=== PATIENT | female | born 1970 | race American Indian/Alaskan Native ===

== ENCOUNTER 2018-10-03 05:19 | Day surgery (SDC) | payer OTHER ==
[2018-10-03] MEDS ORDERED: Midazolam 1 MG/ML 2 ML SDV IV ONE ×3 (05:20→06:32)
[2018-10-03] MEDS ORDERED: fentaNYL 100 MCG/2 ML SDV IV ONE ×3 (05:20→06:30)
[2018-10-03] MEDS ORDERED: Dextrose 5%-0.45% NaCl 1,000 ML IV SCH (06:00)
[2018-10-03] MEDS ORDERED: Sodium Chloride 0.9% 10 ML Syringe FLUSH PRN (06:00)
[2018-10-03] MEDS ORDERED: Midazolam 1 MG/ML 2 ML SDV ONE (06:12)
[2018-10-03] MEDS ORDERED: fentaNYL 100 MCG/2 ML SDV ONE (06:13)
--- NOTE | 2018-10-03 07:26 | OR ---
DATE: 10/03/2018 PROCEDURE: Esophagogastroduodenoscopy, NBI, and multiple pinch biopsies. INSTRUMENT USED: GIF-HQ190 Olympus video panendoscope. PREMEDICATIONS: No oral or topical anesthesia used. Fentanyl 100 mcg intravenous, Versed 2 mg intravenous. Nasal O2 cannula. The procedure was done under pulse oximetry, BP recording, and engine monitor. INDICATION: The patient with multiple abdominal symptoms, unexplained, and not responsive to medical measures, and also has iron-deficiency anemia. Esophagogastroduodenoscopy is performed for detection of any active erosive lesions, malignancy also under consideration, H. pylori status to be determined, endoscopic hemostasis therapy if needed. DESCRIPTION OF PROCEDURE: The scope was passed with ease. Adequate visualization of the esophagus was made from proximal to distal areas. No upper esophageal lesions identified. No distal esophageal stricture. No uphill or downhill esophageal varices. No Kandy-Garcia tear. No evidence of erosive esophagitis by Pershing criteria. No esophageal polyp or tumor mass identified. Z-line was seen at around 40 cm distal to the oral verge, configuration consistent with grade I by ZAP classification. No proximal gastric varices noted. Gastric fundus examination by retroflexion showed no polypoid lesions. No gastric ulcer, malignant mass, or vascular ectasia identified. Scattered gastric antral erosions were noted in the antrum and distal body. NBI views were taken, photographs were taken, multiple pinch biopsies were taken from the largest erosion and sent for histopathology. Multiple pinch biopsies were also taken from the gastric antrum and proximal body and sent for PyloriTek test for H. pylori and histopathology. Duodenal bulb showed no ulcer. Visualized second part of the duodenum was unremarkable. No bleeding was noted from any of the visualized areas at the completion of examination. Photographs were taken of the duodenal bulb, gastric antrum, fundus, and distal esophagus. IMPRESSION: Multiple gastric erosions. The patient tolerated the procedure well. [facility] /[id number]
[2018-10-03 10:28] VITALS: BP 103/64
== END 2018-10-03 08:46 | disposition home or self-care (01) ==
LOC: DL.ENDO 05:19
PROVIDERS: ATTEND Internal Medicine Gastroenterology
DX: K29.50 Unspecified chronic gastritis without bleeding (principal); K25.9 Gastric ulcer, unspecified as acute or chronic, without hemorrhage or perforation; B96.81 Helicobacter pylori [H. pylori] as the cause of diseases classified elsewhere; D50.9 Iron deficiency anemia, unspecified; K21.9 Gastro-esophageal reflux disease without esophagitis; F17.210 Nicotine dependence, cigarettes, uncomplicated; J45.909 Unspecified asthma, uncomplicated; I10 Essential (primary) hypertension; Z80.0 Family history of malignant neoplasm of digestive organs; Z88.5 Allergy status to narcotic agent; Z98.890 Other specified postprocedural states; Z79.899 Other long term (current) drug therapy
CPT/HCPCS: 43239; J2250; J3010; J7042

== ENCOUNTER 2018-10-08 05:41 | Day surgery (SDC) | payer OTHER ==
[2018-10-08] MEDS ORDERED: fentaNYL 100 MCG/2 ML SDV IV ONE ×3 (05:42→06:57)
[2018-10-08] MEDS ORDERED: Midazolam 1 MG/ML 2 ML SDV IV ONE ×7 (05:42→07:19)
[2018-10-08] MEDS ORDERED: fentaNYL 100 MCG/2 ML SDV ONE (06:08)
[2018-10-08] MEDS ORDERED: Midazolam 1 MG/ML 2 ML SDV ONE (06:09)
[2018-10-08] MEDS ORDERED: Dextrose 5%-0.45% NaCl 1,000 ML IV SCH (06:15)
[2018-10-08 09:11] VITALS: BP 104/67; PULSE 63
--- NOTE | 2018-10-08 13:13 | OR ---
DATE: 10/08/2018 PROCEDURE PERFORMED: Total colonoscopy and cold snare polypectomy. INSTRUMENT USED: PCF-H190DL Olympus video colonoscope. PREMEDICATIONS: Fentanyl 100 mcg intravenous, Versed 3 mg intravenous. The procedure was done under pulse oximetry, BP recording, and monitor and storage bin tender. INDICATION: The patient with iron-deficiency anemia and progressive weight loss. Colonoscopic examination is done for detection of any polypoid lesions and removal, endoscopic hemostasis therapy if needed. DESCRIPTION OF PROCEDURE: Initial rectal exam was unremarkable. Rigid anoscopy was normal. The colonoscope was passed with ease. In the proximal rectum, 5 mm sized benign-appearing polyp was noted, photograph was taken, cold snare polypectomy was done, the tissue was retrieved and sent for histopathology. The scope was passed with ease up to the ileocecal area, the colon was found to be redundant, photographs were taken of the normal-appearing cecum, identified by landmarks of appendiceal orifice and double-bulged ileocecal folds. No bleeding was noted from any of the visualized areas at the commencement of the examination. The bowel preparation was found to be adequate, large amount of liquid fecal material had to be aspirated, [place] scale 2 in all the regions. No stricture. No vascular ectasia. No large isolated ulcerations seen. No evidence of diffuse inflammatory bowel disease in the form of friability, contact bleeding, or ulcerations. Probing the proximal sides of folds and flexures using adequate distention and clearing up the stool material, withdrawal of the scope was made, cecum to rectum, time over 6 minutes. No bleeding was noted from any of the visualized areas at the completion of the examination. IMPRESSION: Rectal polyp. The patient tolerated the procedure well. [facility] /[id number]
== END 2018-10-08 09:33 | disposition home or self-care (01) ==
LOC: DL.ENDO 05:41
PROVIDERS: ATTEND Internal Medicine Gastroenterology
DX: D12.8 Benign neoplasm of rectum (principal); D50.9 Iron deficiency anemia, unspecified; R63.4 Abnormal weight loss; F17.210 Nicotine dependence, cigarettes, uncomplicated; I10 Essential (primary) hypertension; J45.909 Unspecified asthma, uncomplicated; M54.9 Dorsalgia, unspecified; G89.29 Other chronic pain; Z79.899 Other long term (current) drug therapy; Z88.6 Allergy status to analgesic agent
CPT/HCPCS: 45385; 87077; J2250; J3010; J7042

== ENCOUNTER 2022-11-07 22:26 | Emergency (ER) | payer OTHER ==
[2022-11-07] MEDS ORDERED: Ketorolac 30 MG/ML SDV IVPUSH ONE (22:33)
[2022-11-07 22:40] VITALS: BP 111/75; PULSE 66
[2022-11-07] MEDS ORDERED: Metoclopramide 10 MG/2 ML SDV IVPUSH ONE (23:47)
== END 2022-11-08 00:20 | disposition home or self-care (01) ==
LOC: DL.ED 22:26
DX: S13.4XXA Sprain of ligaments of cervical spine, initial encounter (principal); S00.03XA Contusion of scalp, initial encounter; R42 Dizziness and giddiness; I10 Essential (primary) hypertension; K21.9 Gastro-esophageal reflux disease without esophagitis; J45.909 Unspecified asthma, uncomplicated; E66.9 Obesity, unspecified; Z68.24 Body mass index [BMI] 24.0-24.9, adult; Z88.5 Allergy status to narcotic agent; Z88.8 Allergy status to other drugs, medicaments and biological substances; W19.XXXA Unspecified fall, initial encounter; Y99.0 Civilian activity done for income or pay; Y92.59 Other trade areas as the place of occurrence of the external cause
CPT/HCPCS: 70450; 72040; 96374; 96375; 99284; 99285; J1885; J2765

== ENCOUNTER 2023-03-29 06:25 | Day surgery (SDC) | payer OTHER ==
[~2023-03-29 06:25] MED LIST: Dextrose 5%-0.45% NaCl 1,000 ML IV SCH
[2023-03-29] MEDS: Dextrose 5%-0.45% NaCl 1,000 ML IV SCH (06:58)
[2023-03-29] MEDS ORDERED: Midazolam 1 MG/ML 2 ML SDV IV ONE (07:21)
[2023-03-29] MEDS ORDERED: fentaNYL 100 MCG/2 ML SDV ONE (07:21)
[2023-03-29] MEDS ORDERED: Midazolam 1 MG/ML 2 ML SDV ONE (07:21)
[2023-03-29] MEDS ORDERED: fentaNYL 100 MCG/2 ML SDV IV ONE (07:21)
[2023-03-29] MEDS: fentaNYL 100 MCG/2 ML SDV IV ONE ×2 (07:30→07:31)
[2023-03-29] MEDS: Midazolam 1 MG/ML 2 ML SDV IV ONE ×2 (07:32)
[2023-03-29 10:35] VITALS: PULSE 70
[2023-03-29 10:48] VITALS: BP 119/83
== END 2023-03-29 09:40 ==
LOC: DL.ENDO 06:25
PROVIDERS: ATTEND Internal Medicine Gastroenterology
DX: K29.50 Unspecified chronic gastritis without bleeding (principal); J45.909 Unspecified asthma, uncomplicated; F41.1 Generalized anxiety disorder; K21.9 Gastro-esophageal reflux disease without esophagitis; I10 Essential (primary) hypertension; E61.1 Iron deficiency; G89.4 Chronic pain syndrome
CPT/HCPCS: 87077; J2250; J3010; J7042

== ENCOUNTER 2024-03-26 09:27 | Day surgery (SDC) | payer OTHER ==
[2024-03-26] MEDS ORDERED: Acetaminophen/Codeine 300-30 MG Tab PO PRN (09:45)
[2024-03-26] MEDS ORDERED: Ondansetron 4 MG/2 ML SDV IVPUSH PRN (09:45)
[2024-03-26] MEDS: Sodium Chloride 0.9% 10 ML Syringe FLUSH PRN (10:24)
[2024-03-26] MEDS: Proparacaine 0.5% Ophth Soln 15 ML Bottle EYELF ONE ×2 (10:25→11:21)
[2024-03-26] MEDS: Povidone-Iodine 5% Sterile Ophth Soln 30 ML Bottle EYELF ONE ×2 (10:25→11:21)
[2024-03-26] MEDS: Moxifloxacin 0.5% Ophth Soln 3 ML Bottle EYELF ONE (10:26)
[2024-03-26] MEDS: Tropicamide 1% Ophth Soln 15 ML Bottle EYELF ONE (10:26)
[2024-03-26] MEDS: Timolol Maleate 0.5% Ophth Soln 5 ML Bottle EYELF ONE (10:27)
[2024-03-26] MEDS: Phenylephrine 10% Ophth Soln 5 ML Bot EYELF ONE (10:27)
[2024-03-26] MEDS: Cataract Ophth Solution EYELF ONE (10:28)
[2024-03-26] MEDS: Diclofenac Sodium 0.1% Ophth Soln 5 ML Bottle EYELF ONE (11:21)
[2024-03-26] MEDS: Apraclonidine 0.5% Ophth Soln 5 ML Bot EYELF ONE (11:21)
[2024-03-26] MEDS: Dexamethasone/Neomycin/Polymyxin B Ophth Oint 3.5 GM Tube EYELF ONE (11:35)
[2024-03-26] MEDS: Lidocaine 1% 30 ML SDV ONE (11:36)
[2024-03-26] MEDS: VANCOmycin 500 MG SDV EYELF ONE (11:37)
[2024-03-26] MEDS: Acetaminophen 325 MG Tab PO PRN (12:06)
[2024-03-26 12:49] VITALS: BP 104/77; PULSE 60
== END 2024-03-26 12:53 | disposition home or self-care (01) ==
LOC: DL.SDS 09:27
PROVIDERS: ATTEND Ophthalmology
DX: H26.8 Other specified cataract (principal); H40.1122 Primary open-angle glaucoma, left eye, moderate stage; I10 Essential (primary) hypertension; J45.909 Unspecified asthma, uncomplicated; K21.9 Gastro-esophageal reflux disease without esophagitis; F17.210 Nicotine dependence, cigarettes, uncomplicated; Z79.899 Other long term (current) drug therapy; Z88.5 Allergy status to narcotic agent
CPT/HCPCS: 66991; A9270; C1783; J3370; V2632; J3490

== ENCOUNTER 2024-04-02 10:16 | Day surgery (SDC) | payer OTHER ==
[~2024-04-02 10:16] MED LIST changes: +Acetaminophen/Codeine 300-30 MG Tab PO PRN; -Dextrose 5%-0.45% NaCl 1,000 ML IV SCH; +Ondansetron 4 MG/2 ML SDV IVPUSH PRN
[2024-04-02] MEDS: Proparacaine 0.5% Ophth Soln 15 ML Bottle EYERT ONE ×2 (10:53→11:14)
[2024-04-02] MEDS: Moxifloxacin 0.5% Ophth Soln 3 ML Bottle EYERT ONE (10:54)
[2024-04-02] MEDS: Tropicamide 1% Ophth Soln 15 ML Bottle EYERT ONE (10:55)
[2024-04-02] MEDS: Povidone-Iodine 5% Sterile Ophth Soln 30 ML Bottle EYERT ONE ×2 (10:55→11:14)
[2024-04-02] MEDS: Timolol Maleate 0.5% Ophth Soln 5 ML Bottle EYERT ONE (10:56)
[2024-04-02] MEDS: Phenylephrine 10% Ophth Soln 5 ML Bot EYERT ONE (10:56)
[2024-04-02] MEDS: Cataract Ophth Solution EYERT ONE (10:56)
[2024-04-02] MEDS: Sodium Chloride 0.9% 10 ML Syringe FLUSH PRN (10:58)
[2024-04-02] MEDS: Apraclonidine 0.5% Ophth Soln 5 ML Bot EYERT ONE (11:14)
[2024-04-02] MEDS: Dexamethasone/Neomycin/Polymyxin B Ophth Oint 3.5 GM Tube EYERT ONE (11:14)
[2024-04-02] MEDS: Lidocaine 1% 30 ML SDV ONE (11:28)
[2024-04-02] MEDS: Acetylcholine 20 MG/2 ML Intraocular Inj Kit EYERT ONE (11:29)
[2024-04-02] MEDS: VANCOmycin 500 MG SDV EYERT ONE (11:29)
[2024-04-02] MEDS: Acetaminophen 325 MG Tab PO PRN (11:43)
[2024-04-02 12:02] VITALS: BP 103/71; PULSE 58
== END 2024-04-02 12:09 ==
LOC: DL.SDS 10:16
PROVIDERS: ATTEND Ophthalmology
DX: H25.811 Combined forms of age-related cataract, right eye (principal); H40.1111 Primary open-angle glaucoma, right eye, mild stage; I10 Essential (primary) hypertension; F17.210 Nicotine dependence, cigarettes, uncomplicated; Z88.8 Allergy status to other drugs, medicaments and biological substances; Z79.899 Other long term (current) drug therapy
CPT/HCPCS: 66991; A9270; C1783; J3370; V2632; 00142; J3490